=== PATIENT | female | born 1950 | race Hispanic/Latino ===

== ENCOUNTER → 2024-11-24 | Outpatient (REF) | payer MEDICARE ==
[~2024-11-24] MED LIST: AMLODIPINE BESYL5 MG PO; ELIQUIS2.5 MG PO; FERROUS SULFAT325 MG PO; HYDROCHLOROTHIA25 MG PO; ICOSAPENT ETHYL1 GM PO; IOPAMIDOL 370 MG/ML 100 ML INFUS..BTL INJ ONE; JARDIANCE10 MG PO; LIPITOR10 MG PO; LOSARTAN POTAS100 MG PO; METFORMIN HCL500 MG PO; OMEPRAZOLE40 MG PO; RENA-VITE RX T1 EACH PO
[2024-11-24 12:54] LABS: EST GLOMERULAR FILTRATION RATE 79.0 ML/MIN (>=60)
== END ==
LOC: CT 12:00
PROVIDERS: ATTEND Nurse Practitioner Family
DX: D50.9 Iron deficiency anemia, unspecified (principal)
CPT/HCPCS: 36415; 74177; 82565; 84520; Q9967

== ENCOUNTER 2025-01-12 11:17 | Emergency (ER) | payer MEDICARE ==
[~2025-01-12] VITALS: Ht 160 cm; Wt 69.9 kg
[~2025-01-12 11:17] MED LIST changes: -IOPAMIDOL 370 MG/ML 100 ML INFUS..BTL INJ ONE
[2025-01-12 11:50] VITALS: TEMP 98.1
[2025-01-12 12:28] LABS: BASOPHILS % 0.6 % (0.0-1.0); EOSINOPHILS % 1.0 % (0.0-6.0); LYMPHOCYTES % 17.6 % (18.0-39.1); MONOCYTES % 7.1 % (4.4-11.3); NEUTROPHILS % 73.2 % (38.7-80.0); RED CELL DISTRIBUTION WIDTH 13.8 % (11.7-14.4)
[2025-01-12 12:44] LABS: INR 0.98
[2025-01-12 12:45] LABS: EST GLOMERULAR FILTRATION RATE 52.0 ML/MIN (>=60)
[2025-01-12] MEDS ORDERED: IOPAMIDOL 370 MG/ML 100 ML INFUS..BTL INJ ONE (13:03)
[2025-01-12] MEDS: SODIUM CHLORIDE 0.9% 1000ML 1,000 ML IV STA (13:48)
[2025-01-12] MEDS: MECLIZINE HCL 12.5 MG TAB PO ONE (13:48)
[2025-01-12] MEDS: ONDANSETRON HCL INJ 2MG/ML 2ML 2 MG/ML VIAL IV STA (13:48)
[2025-01-12] MEDS: ASPIRIN 81 MG CHEW TAB PO ONE (13:49)
[2025-01-12 14:14] LABS: LEUKOCYTE ESTERASE ,URINE SMALL (NEGATIVE); PROTEIN,URINE DIPSTICK NEGATIVE (NEGATIVE); URINE UROBILINOGEN 0.2 mg/dL (0.2 - 1)
[2025-01-12 14:16] LABS: EPITHELIAL CELLS,URINE FEW /LPF
[2025-01-12 14:44] VITALS: PULSE 52; RESP 16; O2SAT 97
[2025-01-12] MEDS ORDERED: CEFDINIR300 MG PO (15:15)
== END 2025-01-12 16:48 | disposition home or self-care (01) ==
LOC: ER 12:35
DX: R42 Dizziness and giddiness (principal); N39.0 Urinary tract infection, site not specified; E86.0 Dehydration; N28.9 Disorder of kidney and ureter, unspecified; I10 Essential (primary) hypertension; E11.65 Type 2 diabetes mellitus with hyperglycemia; R94.31 Abnormal electrocardiogram [ECG] [EKG]; Z86.73 Personal history of transient ischemic attack (TIA), and cerebral infarction without residual deficits; Z96.651 Presence of right artificial knee joint
CPT/HCPCS: 36415; 70450; 70496; 70498; 71045; 80053; 81001; 82550; 83735; 84484; 85025; 85610; 85730; 93005; 99284; J2405; J7030; J8597; Q9967